=== PATIENT | female | born 1995 | race African-American/Black ===

== ENCOUNTER 2021-11-04 12:44 | Emergency (ER) | payer BC, SELFPAY ==
[2021-11-04 14:21] LABS: Bilirubin Neg (Negative); Blood, Urine Negative (Negative); Clarity Clear (Clear); Glucose, Urine (Dipstick) Normal (Negative); Ketone, Urine Negative (Negative); Leukocyte 25 (Negative); Nitrite Negative (Negative); Protein, Urine (Dipstick) 15 mg/dl (Neg-Trace); Specific Gravity, Urine 1.015 (1.005-1.030)
[2021-11-04 14:25] LABS: Pregnancy Test - Urine (BHCG) Negative (Negative); Pregu Control Background? CLEAR/WHITE (CLR/WHITE); Pregu Control Bar Appear? YES (CONTROL BAR); Specific Gravity 1.015 (1.002-1.036)
[2021-11-04 14:47] LABS: Bacteria/HPF 1+ HPF (None Seen); RBC/HPF None Seen HPF (0-3); Squamous Epithelial 0-3 HPF (0-3); WBC/HPF 0-3 HPF (0-3)
== END 2021-11-04 14:41 | disposition home or self-care (01) ==
LOC: CSHERS 12:44
DX: R11.0 Nausea (principal); R42 Dizziness and giddiness
CPT/HCPCS: 81003; 81015; 81025; 99283

== ENCOUNTER 2021-11-25 18:08 | Emergency (ER) | payer BC ==
[2021-11-25] MEDS ORDERED: Dicyclomine 20 MG/2 ML VIAL ONE (20:23)
[2021-11-25] MEDS ORDERED: Ondansetron ODT 4 MG TAB ONE (20:24)
[2021-11-25 20:58] LABS: Bilirubin Neg (Negative); Blood, Urine Negative (Negative); Clarity Clear (Clear); Glucose, Urine (Dipstick) Normal (Negative); Ketone, Urine Negative (Negative); Leukocyte Negative (Negative); Nitrite Negative (Negative); Protein, Urine (Dipstick) Negative (Neg-Trace)
[2021-11-25 20:59] LABS: Pregnancy Test - Urine (BHCG) Negative (Negative); Pregu Control Background? CLEAR/WHITE (CLR/WHITE); Pregu Control Bar Appear? YES (CONTROL BAR)
== END 2021-11-25 21:50 | disposition home or self-care (01) ==
LOC: CSHERS 18:08
DX: R19.7 Diarrhea, unspecified (principal); R11.0 Nausea; E03.9 Hypothyroidism, unspecified
CPT/HCPCS: 81003; 81025; 96372; 99284; Q0162

== ENCOUNTER 2023-07-08 10:03 | Outpatient (CLI) | payer BC | END 2023-07-08 10:04 | disposition home or self-care (01) | LOC: CSHULT 10:03 | PROVIDERS: ATTEND Otolaryngology | DX: E05.90 Thyrotoxicosis, unspecified without thyrotoxic crisis or storm (principal); E07.89 Other specified disorders of thyroid | CPT/HCPCS: 76536 ==

== ENCOUNTER 2024-12-31 15:00 | Emergency (ER) | payer BC, SELFPAY ==
[2024-12-31 16:23] LABS: #Basophils Less than 0.03 10x3/uL (0.0-0.2); #Eosinophils Less than 0.03 10x3/uL (0.0-0.5); #Monocytes 0.36 10x3/uL (0.0-1.1); #Neutrophils 3.29 10x3/uL (1.5-8.4); %Basophils 0.2 % (0.0-2.0); %Eosinophils 0.2 % (0.0-6.0); %Lymphocytes 20.0 % (18.0-47.0); %Monocytes 7.8 % (0.0-10.0); %Neutrophils 71.6 % (40.0-75.0); Hematocrit 41.4 % (34.9-44.5); Hemoglobin 13.6 g/dL (12.0-15.5); Mean Corpuscular Hemoglobin 27.4 pg (27.0-33.0); Mean Corpuscular Volume 83.5 fL (81.6-98.3); Platelet Count 178 10x3/uL (150-450); Red Blood Cell (RBC) Count 4.96 10x6/uL (3.90-5.03); White Blood Cell (WBC) Count 4.60 10x3/uL (3.5-10.5)
[2024-12-31] MEDS ORDERED: Ketorolac Tromethamine 30 MG (1 mL) VIAL ONE (16:24)
[2024-12-31] MEDS ORDERED: Dicyclomine 20 MG TAB ONE (16:49)
[2024-12-31 16:50] LABS: BHCG - Serum Negative (NEGATIVE); Pregs Control Background? CLEAR/WHITE (CLR/WHITE); Pregs Control Bar Appear? YES (CONTROL BAR)
[2024-12-31 16:55] LABS: ALT (SGPT) 17 U/L (Less than 34); AST (SGOT) 22 U/L (11-34); Albumin 4.3 g/dL (3.1-4.5); Alkaline Phosphatase 75 U/L (40-110); Anion Gap 12 mmol/L (10-20); BUN (Urea Nitrogen) 14 mg/dL (7.0-18.7); Bilirubin, Total 0.9 mg/dL (0.3-1.2); Calc. Creatinine Clearance 0 mL/min (70-130); Calcium 9.3 mg/dL (7.8-10.44); Carbon Dioxide 25 mmol/L (22-29); Chloride 105 mmol/L (98-107); Globulin 4.2 g/dL (2.4-3.5); Glucose 107 mg/dL (70-105); Lipase 23 U/L (8-78); Potassium 4.4 mmol/L (3.5-5.1); Sodium 138 mmol/L (136-145)
== END 2024-12-31 18:55 | disposition home or self-care (01) ==
LOC: CSHERS 15:00
DX: A08.4 Viral intestinal infection, unspecified (principal)
CPT/HCPCS: 36415; 80053; 83690; 84703; 85025; 96374; 96375; J1885